=== PATIENT | female | born 1985 | race Hispanic/Latino ===

== ENCOUNTER 2022-12-31 19:22 | Emergency (ER) | payer SELFPAY ==
[~2022-12-31] VITALS: Ht 144.8 cm; Wt 48.1 kg
[2022-12-31] MEDS ORDERED: ALBUTEROL/IPRATROPIUM 3 ML NEB NEB ONE (20:00)
[2022-12-31] MEDS ORDERED: ALBUTEROL/IPRATROPIUM 3 ML NEB ONE (20:03)
[2022-12-31] MEDS ORDERED: AZITHROMYCIN 250 MG TAB ONE (20:52)
[2022-12-31] MEDS ORDERED: AZITHROMYCIN250 MG PO (20:54)
[2022-12-31] MEDS ORDERED: PROVENTIL HFA6.7 GM INH (20:54)
[2022-12-31 20:58] VITALS: BP 126/72; PULSE 102; RESP 18; TEMP 98.2; O2SAT 100
[2022-12-31] MEDS ORDERED: AZITHROMYCIN 250 MG TAB PO ONE (21:00)
== END 2022-12-31 20:58 | disposition home or self-care (01) ==
LOC: FSED 19:25
DX: R05.9 Cough, unspecified (principal); J40 Bronchitis, not specified as acute or chronic; R06.2 Wheezing
CPT/HCPCS: 71046; 99283